=== PATIENT | female | born 1975 | race Caucasian/White ===

== ENCOUNTER 2016-07-10 15:54 | Emergency (ER) | payer OTHER ==
[2016-07-10 16:00] VITALS: BP 136/67; PULSE 108; TEMP 98.6; BMI 24.7
[2016-07-10] MEDS ORDERED: AMOXICILLIN 500 MG CAPSULE (FP) PO ONE (17:15)
[2016-07-10] MEDS ORDERED: AMOX TR/POT CLAV 500MG/125MG TABLETS (FP) ONE (17:20)
--- NOTE | 2016-07-10 17:22 | PDOC ---
History of Present Illness - General Chief Complaint: Sore Throat Stated Complaint: HEAD PRSSURE/ THROAT PAIN Time Seen by Provider: 07/10/16 16:56 History Source: Patient Exam Limitations: No Limitations - History of Present Illness Initial Comments: 07/10/16 17:17 41 yr female with sore throat ear pain for one week headache today . no abd pain neg nvd neg urinary complaints. Pt states her daughter has sore throat and ear pain. Severity: mild Past History - Past Medical History Allergies/Adverse Reactions: Allergies Allergy/AdvReac Type Severity Reaction Status Date / Time No Known Drug Allergies Allergy Verified 07/10/16 16:00 Home Medications: Ambulatory Orders Oxybutynin Chloride [Ditropan Xl] 10 mg PO DAILY 12/10/15 Amoxicillin - [Amoxicillin 500mg Capsule -] 500 mg PO BID #20 capsule 07/10/16 Anemia: No Asthma: No Cancer: No Cardiac Disorders: No CVA: No COPD: No CHF: No Dementia: No Diabetes: No GI Disorders: No Disorders: No HTN: No Hypercholesterolemia: No Kidney Stones: Yes Liver Disease: No Seizures: No Thyroid Disease: No - Immunization History Immunization Up to Date: Yes - Psycho/Social/Smoking Cessation Hx Anxiety: No Suicidal Ideation: No Smoking Status: No Smoking History: Never smoked Number of Cigarettes Smoked Daily: 0 Hx Alcohol Use: No Drug/Substance Use Hx: No Substance Use Type: None Review of Systems - Review of Systems Able to Perform ROS?: Yes Is the patient limited Macedonian proficient: No Constitutional: No: Symptoms Reported HEENTM: Yes: Symptoms Reported Neurological: Yes: Symptoms reported, Headache *Physical Exam - Vital Signs Last Vital Signs Temp Pulse Resp BP Pulse Ox 98.6 F 108 H 20 136/67 99 07/10/16 15:58 07/10/16 15:58 07/10/16 15:58 07/10/16 15:58 07/10/16 15:58 - Physical Exam General Appearance: Yes: Nourished, Appropriately Dressed HEENT: positive: EOMI, SAMEER, Pharyngeal Erythema, TM Erythema Neck: positive: Supple, Lymphadenopathy (R) Respiratory/Chest: positive: Lungs Clear, Normal Breath Sounds. negative: Chest Tender Cardiovascular: positive: Regular Rhythm, Regular Rate Gastrointestinal/Abdominal: positive: Soft Musculoskeletal: positive: Normal Inspection Extremity: positive: Normal Capillary Refill, Normal Inspection, Normal Range of Motion Integumentary: positive: Normal Color, Dry, Warm Neurologic: positive: Fully Oriented, Alert, Normal Mood/Affect, Normal Response , Motor Strength 5/5 Medical Decision Making - Medical Decision Making 07/10/16 17:20 cc: sore throat, ear pain no vomiting, c/o headache today daughter with same symptoms non toxic stable vitals will give toradol IM dc with amoxicillin pt is eating and drinking well. *DC/Admit/Observation/Transfer Diagnosis at time of Disposition: Pharyngitis Qualifiers: Pharyngitis/tonsillitis etiology: unspecified etiology Qualified Code(s): J02.9 - Acute pharyngitis, unspecified - Discharge Dispostion Disposition: HOME Condition at time of disposition: Good - Prescriptions Prescriptions: Amoxicillin - [Amoxicillin 500mg Capsule -] 500 mg PO BID #20 capsule - Referrals Referrals: Jelani Yin MD [Staff Physician] - - Patient Instructions Additional Instructions: drink pleanty of fluids to stay hydrated take ibuprofen 800mg every 6-8hrs next dose at 11pm you can take tylenol 650mg every 4-6hrs in between take the Amoxicillin as directed for 10 days follow with your doctor if not improving in 2 days Return to ER for any worsening symptoms Radha abundantemente de [place]qu[place] para mantenerse hidratado Rafael Gonzalez ibuprofen 800mg cada 6-8hrs la siguiente dosis a las 11pm Usted puede serge tylenol 650mg cada 4-6hrs entre Serge la Amoxicilina segn las indicaciones sid 10 jose Siga con hyatt mdico si no mejora en 2 jose Regreso a la aron de emergencias por cualquier empeoramiento de los sntomas
[2016-07-10] MEDS ORDERED: KETOROLAC TROMETHAMINE 60 MG/2 ML VIAL IM ONE (17:35)
[2016-07-10] MEDS ORDERED: KETOROLAC TROMETHAMINE 60 MG/2 ML VIAL ONE (17:38)
== END 2016-07-10 17:48 | disposition home or self-care (01) ==
LOC: JERFT 15:54
PROC: 3E0233Z Introduction of Anti-inflammatory into Muscle, Percutaneous Approach (ICD-10-PCS; principal; 2016-07-10)
DX: J02.9 Acute pharyngitis, unspecified (principal)
CPT/HCPCS: 96372; 99281-25

== ENCOUNTER 2016-07-14 07:22 | Emergency (ER) | payer OTHER ==
[2016-07-14 07:29] VITALS: TEMP 98; BMI 24.7
[2016-07-14] MEDS ORDERED: KETOROLAC TROMETHAMINE 30 MG/1 ML VIAL IVPUSH ONE (07:56)
[2016-07-14] MEDS ORDERED: SODIUM CHLORIDE 1,000 ML IV STA (07:56)
[2016-07-14] MEDS ORDERED: KETOROLAC TROMETHAMINE 30 MG/1 ML VIAL ONE (08:16)
--- NOTE | 2016-07-14 08:21 | PDOC ---
History of Present Illness - General Chief Complaint: Pain Stated Complaint: HEADACHE Time Seen by Provider: 07/14/16 07:49 History Source: Patient Exam Limitations: No Limitations - History of Present Illness Initial Comments: 07/14/16 08:07 41-year-old female presents with continual frontal pressure along with sore throat and bilateral ear pain. Patient was seen here 4 days ago was placed on amoxicillin for pharyngitis and states has been taking along with 800 mg Motrin with no improvement of her symptoms. Patient also states has had chills with no recorded temperature. Patient denies medical history, recent travel, recent sick contacts. Patient denies posterior neck pain, chest pain, shortness of breath, cough or abdominal pain, or dizziness. Patient denies decreased hearing, or change in appetite. Timing/Duration: reports: other Severity: reports: moderate Possible Cause: Yes: no prior episodes Associated Symptoms: reports: earache, headache, nasal congestion, sore throat. denies: sinus infection Past History - Past Medical History Allergies/Adverse Reactions: Allergies Allergy/AdvReac Type Severity Reaction Status Date / Time No Known Drug Allergies Allergy Verified 07/14/16 07:29 Home Medications: Ambulatory Orders Fluticasone Propionate [Flonase Allergy Relief] 1 - 2 spray NS BID PRN #1 spray.susp 07/14/16 Anemia: No Asthma: No Cancer: No Cardiac Disorders: No CVA: No COPD: No CHF: No Dementia: No Diabetes: No GI Disorders: No Disorders: No HTN: No Hypercholesterolemia: No Kidney Stones: Yes Liver Disease: No Seizures: No Thyroid Disease: No - Reproductive History LMP Normal: Yes Is Patient Now?: No - Immunization History Immunization Up to Date: Yes - Psycho/Social/Smoking Cessation Hx Anxiety: No Suicidal Ideation: No Smoking Status: No Smoking History: Never smoked Number of Cigarettes Smoked Daily: 0 Information on smoking cessation initiated: No Hx Alcohol Use: No Drug/Substance Use Hx: No Substance Use Type: None Patient Lives Alone: No Lives with/in: spouse/SO Review of Systems - Review of Systems Able to Perform ROS?: Yes Constitutional: Yes: Chills HEENTM: Yes: Ear Pain, Nose Congestion, Throat Pain Respiratory: No: Symptoms reported Cardiac (ROS): No: Symptoms Reported ABD/GI: No: Symptoms Reported : No: Symptoms Reported Integumentary: No: Symptoms Reported Neurological: Yes: Headache (frontal). No: Weakness, Dizziness *Physical Exam - Vital Signs Last Vital Signs Temp Pulse Resp BP Pulse Ox 98 F 90 18 126/98 99 07/14/16 07:26 07/14/16 07:26 07/14/16 07:26 07/14/16 07:26 07/14/16 07:26 - Physical Exam General Appearance: Yes: Nourished, Appropriately Dressed. No: Apparent Distress HEENT: positive: EOMI, SAMEER, TMs Normal, Pharynx Normal, Sinus Tenderness ( frontal). negative: Pale Conjunctivae Neck: positive: Supple. negative: Lymphadenopathy (R), Lymphadenopathy (L) Respiratory/Chest: positive: Lungs Clear, Normal Breath Sounds. negative: Respiratory Distress, Accessory Muscle Use Cardiovascular: positive: Regular Rhythm, Regular Rate. negative: Murmur Gastrointestinal/Abdominal: positive: Soft. negative: Tenderness Extremity: positive: Normal Capillary Refill. negative: Pedal Edema Integumentary: positive: Normal Color, Warm, Moist Neurologic: positive: Motor Strength 5/5 (ambulatory) ED Treatment Course - LABORATORY CBC & Chemistry Diagram: 07/14/16 08:15 07/14/16 08:15 Medical Decision Making - Medical Decision Making 07/14/16 08:00 Patient here with continual complaints of nasal congestion, sore throat and headache along with ear pain. Patient on exam had no acute findings. Vital signs are stable. Due to the fact the patient on antibiotics now I will check labs ordered IV fluids and Toradol. 07/14/16 09:29 Laboratory Tests 07/14/16 07/14/16 07/14/16 08:15 08:15 08:15 WBC 8.0 Hgb 12.7 D Hct 37.9 MCV 89.2 Sodium 142 Potassium 3.8 Chloride 107 Carbon Dioxide 26 Anion Gap 9 BUN 13 D Creatinine 0.6 Creat Clearance w eGFR > 60 Random Glucose 87 Lactic Acid 1.0 Calcium 8.7 Total Bilirubin 0.3 D AST 15 ALT 19 Alkaline Phosphatase 69 Total Protein 7.1 Albumin 3.3 L Serum , Qual 07/14/16 08:15 WBC Hgb Hct MCV Sodium Potassium Chloride Carbon Dioxide Anion Gap BUN Creatinine Creat Clearance w eGFR Random Glucose Lactic Acid Calcium Total Bilirubin AST ALT Alkaline Phosphatase Total Protein Albumin Serum , Qual Negative Pt states feeling somewhat better but still c/o forehead and nasal pressure. I will prescribe flonase *DC/Admit/Observation/Transfer Diagnosis at time of Disposition: Sinus headache - Discharge Dispostion Disposition: HOME Condition at time of disposition: Improved - Prescriptions Prescriptions: Fluticasone Propionate [Flonase Allergy Relief] 1 - 2 spray NS BID PRN #1 spray.susp PRN Reason: Nasal Congestion - Referrals Referrals: Kana Williamson MD [Primary Care Provider] - - Patient Instructions Printed Discharge Instructions: DI for Sinus Headache
[2016-07-14 08:44] LABS: ALBUMIN 3.3 g/dl (3.4-5.0); ALK PHOS 69 U/L (45-117); ANION GAP 9 (8-16); BILIRUBIN,TOTAL 0.3 mg/dL (0.2-1.0); CALCIUM 8.7 mg/dL (8.5-10.1); CO2 26 mmol/L (21-32); CREATININE 0.6 mg/dL (0.55-1.02); GLUCOSE,RANDOM 87 mg/dL (74-106); SGOT/AST 15 U/L (15-37); SGPT/ALT 19 U/L (12-78); TOT PROT 7.1 g/dl (6.4-8.2)
[2016-07-14 09:12] LABS: BASOPHIL 0.6 % (0-2.0); EOSINOPHIL 2.7 % (0-4.5); MCH 29.8 pg (25.7-33.7); MCHC 33.4 g/dl (32.0-36.0); MEAN CELL VOLUME 89.2 fl (80-96); MEAN PLT VOLUME 8.6 fl (7.5-11.1); NEUTROPHILS 66.8 % (42.8-82.8); PLATELET COUNT 262 K/MM3 (134-434); RDW 14.1 % (11.6-15.6)
--- NOTE | 2016-07-14 09:32 | PDOC ---
*Physical Exam - Vital Signs Last Vital Signs Temp Pulse Resp BP Pulse Ox 98 F 90 18 126/98 99 07/14/16 07:26 07/14/16 07:26 07/14/16 07:26 07/14/16 07:26 07/14/16 07:26 ED Treatment Course - LABORATORY CBC & Chemistry Diagram: 07/14/16 08:15 07/14/16 08:15 - ADDITIONAL ORDERS Additional order review: Laboratory Results 07/14/16 07/14/16 07/14/16 08:15 08:15 08:15 Sodium 142 Potassium 3.8 Chloride 107 Carbon Dioxide 26 Anion Gap 9 BUN 13 D Creatinine 0.6 Creat Clearance w eGFR > 60 Random Glucose 87 Lactic Acid 1.0 Calcium 8.7 Total Bilirubin 0.3 D AST 15 ALT 19 Alkaline Phosphatase 69 Total Protein 7.1 Albumin 3.3 L Serum , Qual Negative 07/14/16 08:15 RBC 4.25 MCV 89.2 MCHC 33.4 RDW 14.1 MPV 8.6 Neutrophils % 66.8 D Lymphocytes % 23.9 D Monocytes % 6.0 Eosinophils % 2.7 D Basophils % 0.6 - Medications Given in the ED: ED Medications Discontinued Medications Generic Name Dose Route Start Last Admin Trade Name Freq PRN Reason Stop Dose Admin Sodium Chloride 1,000 mls @ 1,000 mls/hr 07/14/16 07:56 07/14/16 08:15 Normal Saline - IV 07/14/16 08:55 1,000 mls/hr ASDIR STA Administration Medical Decision Making - Medical Decision Making 07/14/16 09:29 Pt seen by the Advanced Practice Provider under my direct supervision Ancillary studies reviewed I agree with plan as outlined by the Advanced Practice Provider ADILIA Bolaños *DC/Admit/Observation/Transfer Diagnosis at time of Disposition: Sinus headache - Discharge Dispostion Disposition: HOME Condition at time of disposition: Improved - Prescriptions Prescriptions: Fluticasone Propionate [Flonase Allergy Relief] 1 - 2 spray NS BID PRN #1 spray.susp PRN Reason: Nasal Congestion - Referrals Referrals: Kana Williamson MD [Primary Care Provider] - - Patient Instructions Printed Discharge Instructions: DI for Sinus Headache
[2016-07-14 10:07] VITALS: BP 105/50; PULSE 70
== END 2016-07-14 10:07 | disposition home or self-care (01) ==
LOC: JER 07:22
PROC: 3E0333Z Introduction of Anti-inflammatory into Peripheral Vein, Percutaneous Approach (ICD-10-PCS; principal; 2016-07-14)
PROC: 3E0337Z Introduction of Electrolytic and Water Balance Substance into Peripheral Vein, Percutaneous Approach (ICD-10-PCS; 2016-07-14)
DX: G44.89 Other headache syndrome (principal); Z87.442 Personal history of urinary calculi
CPT/HCPCS: 36415; 80053; 83605; 84703; 85025; 99282-25

== ENCOUNTER 2017-01-09 12:07 | Day surgery (SDC) | payer OTHER ==
[2017-01-05 12:01] VITALS: BMI 26.5
[~2017-01-09 12:07] MED LIST: LEVOFLOXACIN 500 MG PREMIX BAG IVPB ONE
[2017-01-09] MEDS ORDERED: LACTATED RINGERS SOLUTION 1,000 ML IV SCH (13:00)
[2017-01-09] MEDS ORDERED: ONDANSETRON 4 MG/2 ML VIAL IVPUSH PRN (13:00)
[2017-01-09] MEDS ORDERED: oxyCODONE HCL 5 MG TABLET PO PRN ×2 (13:00)
[2017-01-09] MEDS ORDERED: LEVOFLOXACIN 500 MG IVPB 500 MG/100 ML BAG IVPB ONE (13:33)
[2017-01-09] MEDS ORDERED: LIDOCAINE HCL/PF 2% SDV 5ML VIAL ONE (13:38)
[2017-01-09] MEDS ORDERED: MIDAZOLAM HCL 2 MG/2 ML SINGLE DOSE VIAL ONE (13:38)
[2017-01-09] MEDS ORDERED: LEVOFLOXACIN 500 MG PREMIX BAG IVPB ONE (13:46)
[2017-01-09] MEDS ORDERED: KETOROLAC TROMETHAMINE 30 MG/1 ML VIAL ONE (13:50)
[2017-01-09] MEDS ORDERED: ONDANSETRON 4 MG/2 ML VIAL IVPUSH ONE (14:25)
[2017-01-09] MEDS ORDERED: ONDANSETRON 4 MG/2 ML VIAL ONE (14:33)
--- NOTE | 2017-01-09 15:44 | OP ---
Operative Note - Note: Operative Date: 01/09/17 Pre-Operative Diagnosis: left renal stone Operation: left eswl Findings: 5 mm left renal pelvis stone Post-Operative Diagnosis: Same as Pre-op Surgeon: Harjit Ku Anesthesia: Fractional
[2017-01-09 17:34] VITALS: PULSE 66
[2017-01-09 17:39] VITALS: BP 110/70; TEMP 97.8
--- NOTE | 2017-01-09 22:34 | OP ---
DATE OF OPERATION: 01/09/2017 PREOPERATIVE DIAGNOSIS: Left renal stone. POSTOPERATIVE DIAGNOSIS: Left renal stone. PROCEDURE: Left extracorporeal shock wave lithotripsy. ATTENDING: Tiny Ruiz MD ANESTHESIA: Fractional. DESCRIPTION OF OPERATION: The patient was brought in the operating room and placed in a supine position on the operating room table. Ultrasonography and fluoroscopy were performed. A 5-mm left renal pelvis stone was identified. The patient was then given anesthesia and preoperative antibiotics. At this point, extracorporeal shock wave lithotripsy was performed on the left renal pelvis stone; 2500 impulses at 17 joules of power were administered to the stone with excellent fragmentation of the stone. No complications were noted. The disposition of the patient was to the recovery room. TINY RUIZ M.D. [id number]
== END 2017-01-09 17:40 | disposition home or self-care (01) ==
LOC: JASU-SURG 12:07
PROVIDERS: ATTEND Urology
PROC: 0TF4XZZ Fragmentation in Left Kidney Pelvis, External Approach (ICD-10-PCS; principal; 2017-01-09 14:45)
DX: N20.0 Calculus of kidney (principal)
CPT/HCPCS: 84703; 94760

== ENCOUNTER 2017-05-31 05:10 | Day surgery (SDC) | payer OTHER ==
[2017-04-24 20:04] VITALS: BMI 25.8
--- NOTE | 2017-05-31 14:59 | HP ---
Admitting History and Physical - Admission Chief Complaint: Multiparity / Desires permanent sterilization History of Present Illness: 42 yo Para 2, desires permanent sterilization. She's pre op for tubal ligation History Source: Patient Limitations to Obtaining History: No Limitations - Past Medical History ...LMP: 12/08/16 ...LMP Comment: IRREGULAR ...: No ...Para: 2 - Past Surgical History Past Surgical History: Yes: - Smoking History Smoking history: Never smoked Have you smoked in the past 12 months: No Aproximately how many cigarettes per day: 0 - Alcohol/Substance Use Hx Alcohol Use: No - Social History Usual Living Arrangement: Yes: Alone History of Recent Travel: No Home Medications - Allergies Allergies/Adverse Reactions: Allergies Allergy/AdvReac Type Severity Reaction Status Date / Time No Known Drug Allergies Allergy Verified 05/31/17 13:27 - Home Medications Home Medications: Ambulatory Orders Ibuprofen [Motrin -] 400 mg PO QID 04/24/17 Family Disease History - Family Disease History Family History: Unremarkable Review of Systems - Review of Systems Constitutional: reports: No Symptoms Eyes: reports: No Symptoms HENT: reports: No Symptoms Neck: reports: No Symptoms Cardiovascular: reports: No Symptoms Respiratory: reports: No Symptoms Gastrointestinal: reports: No Symptoms Genitourinary: reports: No Symptoms Breasts: reports: No Symptoms Reported Neurological: reports: No Symptoms Endocrine: reports: No Symptoms Psychiatric: reports: No Symptoms Pain Intensity: 0 Physical Examination Vital Signs: Vital Signs Temperature 98.2 F 05/31/17 13:25 Pulse Rate 74 05/31/17 13:25 Respiratory Rate 20 05/31/17 13:25 Blood Pressure 105/74 05/31/17 13:25 O2 Sat by Pulse Oximetry (%) 99 05/31/17 13:24 Constitutional: Yes: Well Nourished Eyes: Yes: Conjunctiva Clear HENT: Yes: Atraumatic Neck: Yes: Supple Cardiovascular: Yes: Regular Rate and Rhythm Respiratory: Yes: Regular, CTA Bilaterally Gastrointestinal: Yes: Normal Bowel Sounds Neurological: Yes: Alert, Oriented ...Motor Strength: WNL Psychiatric: Yes: Alert, Oriented Problem List - Problems (1) Multiparity Code(s): Z64.1 - PROBLEMS RELATED TO MULTIPARITY Assessment/Plan Multiparity Pre op for tubal ligation Consent signed Anesthesia to see patient
[2017-05-31] MEDS ORDERED: ROCURONIUM BROMIDE 50 MG/5 ML VIAL ONE (15:33)
[2017-05-31] MEDS ORDERED: KETOROLAC TROMETHAMINE 30 MG/1 ML VIAL ONE (15:33)
[2017-05-31] MEDS ORDERED: DEXAMETHASONE SOD PHOSPHATE 4 MG/1 ML VIAL ONE (15:33)
[2017-05-31] MEDS ORDERED: ceFAZolin SODIUM 1 GM VIAL ONE (15:33)
[2017-05-31] MEDS ORDERED: MIDAZOLAM HCL 2 MG/2 ML SINGLE DOSE VIAL ONE ×2 (15:34)
[2017-05-31] MEDS ORDERED: ceFAZolin SODIUM 1 GM VIAL IVPB ONE (16:03)
[2017-05-31] MEDS ORDERED: ACETAMINOPHEN INJECTION 100 ML IVPB ONE (16:14)
[2017-05-31] MEDS ORDERED: NEOSTIGMINE METHYLSULFATE 0.5 MG/ML - 10 ML MDV ONE (16:23)
[2017-05-31] MEDS ORDERED: GLYCOPYRROLATE 0.2 MG/1 ML VIAL ONE (16:23)
--- NOTE | 2017-05-31 16:27 | OP ---
Operative Note - Note: Operative Date: 05/31/17 Pre-Operative Diagnosis: Multiparity Operation: Laparoscopic bilateral tubal ligation Findings: Normal pelvis and abdomen Post-Operative Diagnosis: Same as Pre-op Surgeon: Mary Wong Anesthesia: General Specimens Removed: None Estimated Blood Loss (mls): 5
[2017-05-31] MEDS ORDERED: PROMETHAZINE HCL 25 MG/1 ML VIAL IVPUSH PRN (16:49)
[2017-05-31] MEDS ORDERED: oxyCODONE HCL 5 MG TABLET PO PRN (16:49)
[2017-05-31] MEDS ORDERED: ONDANSETRON 4 MG/2 ML VIAL IVPUSH PRN (16:49)
[2017-05-31] MEDS ORDERED: LACTATED RINGERS SOLUTION 1,000 ML IV SCH (17:00)
[2017-05-31 17:39] VITALS: TEMP 97.9
[2017-05-31 19:37] VITALS: BP 110/68; PULSE 66
== END 2017-05-31 19:30 | disposition home or self-care (01) ==
LOC: JASU-SURG 05:10
PROVIDERS: ATTEND Obstetrics & Gynecology
PROC: 0U574ZZ Destruction of Bilateral Fallopian Tubes, Percutaneous Endoscopic Approach (ICD-10-PCS; principal; 2017-05-31 14:00)
DX: Z30.2 Encounter for sterilization (principal)
CPT/HCPCS: 84703; 94760; J0131

== ENCOUNTER 2020-05-11 05:32 | Day surgery (SDC) | payer OTHER ==
[2020-05-08 16:17] VITALS: BMI 27.4
[2020-05-11] MEDS ORDERED: PROPOFOL 20 ML ONE (11:10)
[2020-05-11] MEDS ORDERED: MIDAZOLAM HCL 2 MG/2 ML SINGLE DOSE VIAL ONE (11:10)
[2020-05-11] MEDS ORDERED: KETOROLAC TROMETHAMINE 30 MG/1 ML VIAL ONE (16:22)
[2020-05-11 16:33] VITALS: BP 132/70; PULSE 67; TEMP 98
== END 2020-05-11 16:25 | disposition home or self-care (01) ==
LOC: JASU-SURG 05:32
PROVIDERS: ATTEND Urology
PROC: 0TF4XZZ Fragmentation in Left Kidney Pelvis, External Approach (ICD-10-PCS; principal; 2020-05-11 12:30)
DX: N20.0 Calculus of kidney (principal)
CPT/HCPCS: 81025

== ENCOUNTER 2021-02-16 06:14 | Emergency (ER) | payer OTHER ==
[2021-02-16 06:56] VITALS: BP 119/80; PULSE 90; TEMP 98.8; BMI 27.3
[2021-02-16] MEDS ORDERED: IBUPROFEN 600 MG TABLET (FP) PO ONE ×2 (07:55→08:04)
[2021-02-19 02:06] LABS: SARS-CoV-2 NAA Detected (Not Detected)
== END 2021-02-16 08:11 | disposition home or self-care (01) ==
LOC: JER 06:14
DX: H60.502 Unspecified acute noninfective otitis externa, left ear (principal); J06.9 Acute upper respiratory infection, unspecified
CPT/HCPCS: 87804; 87807; 99283-25; C9803; U0003; U0005

== ENCOUNTER 2022-04-30 19:47 | Emergency (ER) | payer OTHER ==
[2022-04-30 19:56] VITALS: BP 115/74; PULSE 75; RESP 18; TEMP 97.9; BMI 31.0
[2022-04-30] MEDS ORDERED: NEOMYCIN/COLISTIN/HC OTIC SUSP 5 ML BOTTLE AD ONE (21:11)
== END 2022-04-30 21:51 | disposition home or self-care (01) ==
LOC: JERFT 19:47 → JER 19:47 → JERFT 21:51
DX: H60.502 Unspecified acute noninfective otitis externa, left ear (principal)
CPT/HCPCS: 99282-25

== ENCOUNTER 2022-07-02 13:11 | Emergency (ER) | payer OTHER ==
[2022-07-02 13:31] VITALS: BP 114/73; PULSE 78; RESP 16; TEMP 98; BMI 27.6
[2022-07-02] MEDS ORDERED: IBUPROFEN 600 MG TABLET (FP) PO ONE ×2 (15:17→15:27)
[2022-07-02] MEDS ORDERED: ACETAMINOPHEN 500 MG TABLET (FP) PO ONE (15:17)
[2022-07-02] MEDS ORDERED: ACETAMINOPHEN 500 MG TABLET (FP) ONE (15:27)
== END 2022-07-02 15:31 | disposition home or self-care (01) ==
LOC: JER 13:11
DX: L72.0 Epidermal cyst (principal)
CPT/HCPCS: 99283-25

== ENCOUNTER 2022-07-06 22:44 | Observation (INO) | payer OTHER ==
[2022-07-07] MEDS ORDERED: ACETAMINOPHEN 1000 MG/100 ML BAG IVPB ONE (00:03)
[2022-07-07] MEDS ORDERED: ACETAMINOPHEN INJECTION 100 ML IVPB ONE (00:15)
[2022-07-07 00:24] LABS: BASO % 0.9 % (0-2.0); EOS % 6.4 % (0-4.5); HEMATOCRIT 38.3 % (32.4-45.2); HEMOGLOBIN 13.1 GM/dL (10.7-15.3); LYMPH % 32.6 % (8-40); MCH 30.1 pg (25.7-33.7); MCHC 34.3 g/dl (32.0-36.0); MEAN CELL VOLUME 87.8 fl (80-96); MEAN PLT VOLUME 8.5 fl (7.5-11.1); MONO % 6.6 % (3.8-10.2); NEUT % 53.5 % (42.8-82.8); PLATELET COUNT 323 10^3/uL (134-434); RBC 4.37 M/mm3 (3.60-5.2); RDW 14.6 % (11.6-15.6); WHITE BLOOD COUNT 8.8 K/mm3 (4.0-10.0)
[2022-07-07 00:36] LABS: INR 0.89 (0.83-1.09); PROTHROMBIN TIME (PATIENT) 10.3 SEC (9.7-13.0)
[2022-07-07 00:39] LABS: ACTIVATED PTT 29.4 SECONDS (25.2-36.5)
[2022-07-07 00:49] LABS: POTASSIUM 4.1 mmol/L (3.5-5.1)
[2022-07-07 00:51] LABS: CALCIUM 9.1 mg/dL (8.5-10.1)
[2022-07-07 00:52] LABS: ALBUMIN 3.8 g/dl (3.4-5.0); BLOOD UREA NITROGEN 24.8 mg/dL (7-18); MAGNESIUM 1.8 mg/dL (1.8-2.4)
[2022-07-07 00:55] LABS: CREATININE 0.7 mg/dL (0.55-1.3); PHOSPHOROUS 3.2 mg/dL (2.5-4.9)
[2022-07-07 00:56] LABS: BILIRUBIN,TOTAL 0.2 mg/dL (0.2-1); TOT PROT 7.5 g/dl (6.4-8.2)
[2022-07-07] MEDS ORDERED: LIDOCAINE 2.5%/PRILOCAINE 2.5% 30 GRAM TUBE TP ONE (01:27)
[2022-07-07] MEDS ORDERED: LIDOCAINE 2.5%/PRILOCAINE 2.5% (5 Gram/TUBE) TP ONE (01:28)
[2022-07-07 07:50] LABS: BASO % 0.7 % (0-2.0); EOS % 6.6 % (0-4.5); HEMATOCRIT 35.6 % (32.4-45.2); HEMOGLOBIN 12.4 GM/dL (10.7-15.3); LYMPH % 31.6 % (8-40); MCH 30.5 pg (25.7-33.7); MCHC 34.9 g/dl (32.0-36.0); MEAN CELL VOLUME 87.4 fl (80-96); MEAN PLT VOLUME 9.1 fl (7.5-11.1); MONO % 7.6 % (3.8-10.2); NEUT % 53.5 % (42.8-82.8); PLATELET COUNT 267 10^3/uL (134-434); RBC 4.07 M/mm3 (3.60-5.2); RDW 14.4 % (11.6-15.6); WHITE BLOOD COUNT 8.1 K/mm3 (4.0-10.0)
[2022-07-07 08:09] LABS: POTASSIUM 4.3 mmol/L (3.5-5.1)
[2022-07-07 08:13] LABS: ALBUMIN 3.4 g/dl (3.4-5.0); BLOOD UREA NITROGEN 21.5 mg/dL (7-18); CALCIUM 8.7 mg/dL (8.5-10.1); MAGNESIUM 1.8 mg/dL (1.8-2.4)
[2022-07-07 08:16] LABS: CREATININE 0.6 mg/dL (0.55-1.3)
[2022-07-07 08:17] LABS: PHOSPHOROUS 3.3 mg/dL (2.5-4.9)
[2022-07-07 08:18] LABS: BILIRUBIN,TOTAL 0.4 mg/dL (0.2-1); TOT PROT 6.6 g/dl (6.4-8.2)
[2022-07-07 08:36] VITALS: BMI 28.3
[2022-07-07] MEDS ORDERED: LIDOCAINE HCL 1%, 10 MG/ML (10ML VIAL) MDV SQ ONE (09:37)
[2022-07-07] MEDS: KETOROLAC TROMETHAMINE 30 MG/1 ML VIAL IVPUSH SCH ×2 (12:24→17:59)
[2022-07-07] MEDS: ACETAMINOPHEN 1000 MG/100 ML BAG IVPB PRN ×2 (14:15→22:37)
[2022-07-07] MEDS: CLINDAMYCIN IN 0.9 % SOD CHLOR 600 MG/50 ML BAG IVPB SCH (18:00)
[2022-07-07] MEDS ORDERED: CEFAZOLIN 1 GM in DEXTROSE 5%-WATER - 50 ML IVPB SCH (18:00)
[2022-07-07 22:06] VITALS: RESP 20
[2022-07-08] MEDS: CLINDAMYCIN IN 0.9 % SOD CHLOR 600 MG/50 ML BAG IVPB SCH ×2 (01:13→11:07)
[2022-07-08] MEDS: KETOROLAC TROMETHAMINE 30 MG/1 ML VIAL IVPUSH SCH (01:14)
[2022-07-08 08:08] VITALS: PULSE 60
[2022-07-08] MEDS ORDERED: DOCUSATE SODIUM 100 MG CAPSULE (FP) PO SCH (10:00)
[2022-07-08 13:16] VITALS: BP 111/62; TEMP 98.1
== END 2022-07-08 13:36 | disposition home or self-care (01) ==
LOC: JER 22:44 → INTOOBSV 07-07 01:08 → JERBED 07-07 01:08 → J8W 07-07 03:11
PROVIDERS: ADMIT Student in an Organized Health Care Education/Training Program; ATTEND Family Medicine
PROC: 0H97XZZ Drainage of Abdomen Skin, External Approach (ICD-10-PCS; principal; 2022-07-07)
PROC: 3E033NZ Introduction of Analgesics, Hypnotics, Sedatives into Peripheral Vein, Percutaneous Approach (ICD-10-PCS; 2022-07-07)
PROC: 3E03329 Introduction of Other Anti-infective into Peripheral Vein, Percutaneous Approach (ICD-10-PCS; 2022-07-07)
PROC: 3E0333Z Introduction of Anti-inflammatory into Peripheral Vein, Percutaneous Approach (ICD-10-PCS; 2022-07-07)
PROC: 3E0337Z Introduction of Electrolytic and Water Balance Substance into Peripheral Vein, Percutaneous Approach (ICD-10-PCS; 2022-07-07)
DX: R50.9 Fever, unspecified (principal); L02.211 Cutaneous abscess of abdominal wall; E78.5 Hyperlipidemia, unspecified; N20.0 Calculus of kidney; D72.10 Eosinophilia, unspecified
CPT/HCPCS: 10060; 36415; 76705-TC; 80053; 83735; 84100; 84703; 85025; 85610; 85730; 86682; 86850; 86900; 86901; 87040; 87070; 87205; 93005; 93010; 96361; 96365; 96375; 96376; 99285-25; C9803-CS; G0378; U0003; U0005

== ENCOUNTER 2022-08-22 18:54 | Emergency (ER) | payer OTHER ==
[2022-08-22 19:01] VITALS: BMI 28.5
[2022-08-22] MEDS ORDERED: ACETAMINOPHEN 1000 MG/100 ML BAG IVPB ONE (20:16)
[2022-08-22] MEDS ORDERED: ONDANSETRON 4 MG/2 ML VIAL IVPUSH ONE (20:17)
[2022-08-22] MEDS ORDERED: ACETAMINOPHEN INJECTION 100 ML IVPB ONE (20:27)
[2022-08-22] MEDS ORDERED: ONDANSETRON 4 MG/2 ML VIAL ONE (20:27)
[2022-08-22 21:16] LABS: BASO % 0.6 % (0-2.0); EOS % 1.4 % (0-4.5); HEMATOCRIT 38.9 % (32.4-45.2); HEMOGLOBIN 12.6 GM/dL (10.7-15.3); LYMPH % 25.3 % (8-40); MCHC 32.5 g/dl (32.0-36.0); MEAN CELL VOLUME 89.2 fl (80-96); MEAN PLT VOLUME 9.4 fl (7.5-11.1); MONO % 6.8 % (3.8-10.2); NEUT % 65.9 % (42.8-82.8); PLATELET COUNT 286 10^3/uL (134-434); RBC 4.36 M/mm3 (3.60-5.2); RDW 14.5 % (11.6-15.6)
[2022-08-22 21:27] LABS: POTASSIUM 4.2 mmol/L (3.5-5.1)
[2022-08-22 21:29] LABS: CALCIUM 9.3 mg/dL (8.5-10.1)
[2022-08-22 21:30] LABS: ALBUMIN 3.8 g/dl (3.4-5.0); BLOOD UREA NITROGEN 25.7 mg/dL (7-18)
[2022-08-22 21:33] LABS: CREATININE 0.9 mg/dL (0.55-1.3)
[2022-08-22 21:35] LABS: BILIRUBIN,TOTAL 0.2 mg/dL (0.2-1); TOT PROT 7.3 g/dl (6.4-8.2)
[2022-08-22 22:31] LABS: EPI CELLS 5 /uL (0-25.1); HYALINE CASTS 0 /uL (0-3.1); PH,URINE 5.5 (5.0-8.0); URINE APPEARANCE CLEAR; URINE BILIRUBIN NEGATIVE (NEGATIVE); URINE COLOR DK YELLOW; URINE GLUCOSE (UA) NEGATIVE (NEGATIVE); URINE KETONE NEGATIVE (NEGATIVE); URINE LEUK ESTERASE TRACE (NEGATIVE); URINE NITRITE POSITIVE (NEGATIVE); URINE PROTEIN NEGATIVE (NEGATIVE); URINE RBC 55 /uL (0-23.9); URINE WBC 7 /uL (0-25.8)
[2022-08-22] MEDS ORDERED: KETOROLAC TROMETHAMINE 15 MG/ML VIAL IVPUSH ONE (22:45)
[2022-08-22] MEDS ORDERED: KETOROLAC TROMETHAMINE 15 MG/ML VIAL ONE (23:03)
[2022-08-23 00:04] LABS: URINE BACTERIA 14.5 /uL (0-1359)
[2022-08-23 01:22] VITALS: BP 106/58; PULSE 68; RESP 16; TEMP 98.8
[2022-08-23] MEDS ORDERED: CEPHALEXIN MONOHYDRATE 500 MG CAPSULE (UD) PO ONE (01:56)
[2022-08-23] MEDS ORDERED: CEPHALEXIN MONOHYDRATE 500 MG CAPSULE (UD) ONE (02:14)
== END 2022-08-23 02:20 | disposition home or self-care (01) ==
LOC: JER 18:54
PROC: 3E033NZ Introduction of Analgesics, Hypnotics, Sedatives into Peripheral Vein, Percutaneous Approach (ICD-10-PCS; principal; 2022-08-22)
PROC: 3E0233Z Introduction of Anti-inflammatory into Muscle, Percutaneous Approach (ICD-10-PCS; 2022-08-22)
PROC: 3E033GC Introduction of Other Therapeutic Substance into Peripheral Vein, Percutaneous Approach (ICD-10-PCS; 2022-08-22)
DX: R10.30 Lower abdominal pain, unspecified (principal); R35.0 Frequency of micturition; R30.0 Dysuria; R11.0 Nausea; R39.15 Urgency of urination; R30.9 Painful micturition, unspecified; M54.50 Low back pain, unspecified; N20.0 Calculus of kidney; N30.01 Acute cystitis with hematuria
CPT/HCPCS: 36415; 74176-TC; 80053; 81003; 84703; 85025; 87086; 99284-25

== ENCOUNTER 2023-10-09 21:30 | Emergency (ER) | payer OTHER ==
[2023-10-09 21:34] VITALS: BP 133/86; BMI 28.3
[2023-10-09] MEDS ORDERED: ACETAMINOPHEN 500 MG TABLET (FP) ONE (23:05)
[2023-10-09] MEDS ORDERED: KETOROLAC TROMETHAMINE 30 MG/1 ML VIAL ONE (23:05)
[2023-10-09] MEDS: KETOROLAC TROMETHAMINE 30 MG/1 ML VIAL IM ONE (23:09)
[2023-10-09] MEDS: ACETAMINOPHEN 500 MG TABLET (FP) PO ONE (23:09)
[2023-10-09 23:11] VITALS: PULSE 92; RESP 18; TEMP 100.4
== END 2023-10-09 23:11 | disposition home or self-care (01) ==
LOC: JERFT 21:30
PROC: 3E0133Z Introduction of Anti-inflammatory into Subcutaneous Tissue, Percutaneous Approach (ICD-10-PCS; principal; 2023-10-09)
DX: J10.1 Influenza due to other identified influenza virus with other respiratory manifestations (principal); Z20.822 Contact with and (suspected) exposure to COVID-19
CPT/HCPCS: 0241U-QW; 84703; 96372; 99284-25

== ENCOUNTER 2023-12-08 08:54 | Emergency (ER) | payer OTHER ==
[2023-12-08 09:06] VITALS: BP 113/73; PULSE 82; RESP 20; TEMP 97.7; BMI 29.7
== END 2023-12-08 11:06 | disposition home or self-care (01) ==
LOC: JERFT 08:54
DX: R21 Rash and other nonspecific skin eruption (principal); B02.9 Zoster without complications
CPT/HCPCS: 99283-25